=== PATIENT | female | born 1985 | race Caucasian/White ===

== ENCOUNTER 2018-09-22 07:36 | Inpatient (IN) | payer OTHER ==
[2018-09-22] MEDS ORDERED: OXYTOCIN 30 UNITS/LR 500 ML IV ×2 (08:30→11:30)
[2018-09-22] MEDS ORDERED: METHYLERGONOVINE 0.2 MG INJ IM ×2 (08:30→11:30)
[2018-09-22] MEDS ORDERED: MISOPROSTOL 200 MCG TAB PR ×2 (08:30→11:30)
[2018-09-22] MEDS ORDERED: CARBOPROST 250 MCG INJ IM ×2 (08:30→11:30)
[2018-09-22] MEDS: LACTATED RINGER'S 1,000 ML IV (08:50)
[2018-09-22] MEDS: AMPICILLIN 2 GM/NS (PMX) 100 ML IV (08:50)
[2018-09-22 09:06] LABS: ADD MAN DIFF? NO
[2018-09-22 09:08] LABS: ABNORMAL IP MESSAGE 1; BASOPHILS % 0.3 % (0.0-2.0); EOSINOPHILS # 0.1 10^3/ul (0.0-0.5); EOSINOPHILS % 1.1 % (0.0-7.0); HEMATOCRIT 37.2 % (37.0-47.0); HEMOGLOBIN 12.5 g/dl (12.0-16.0); LYMPHOCYTES # 1.1 10^3/ul (0.8-2.9); LYMPHOCYTES % 13.4 % (15.0-51.0); MEAN CORPUSCULAR HGB CONC 33.6 g/dl (32.0-37.0); MEAN CORPUSCULAR VOLUME 89.4 fl (82.0-101.0); MEAN PLATELET VOLUME 13.7 fl (7.4-10.4); MONOCYTE # 0.7 10^3/ul (0.3-0.9); MONOCYTES % 8.7 % (0.0-11.0); NEUTROPHILS % 75.9 % (39.0-77.0); PLATELET COUNT 112 10^3/UL (140-415); RED BLOOD COUNT 4.16 10^6/ul (4.20-5.40); RED CELL DISTRIBUTION WIDTH 13.2 % (11.5-14.5)
[2018-09-22 09:08] LABS: WHITE BLOOD COUNT 7.9 10^3/ul (4.8-10.8)
[2018-09-22 09:10] LABS: POSITIVE DIFF @See below
[2018-09-22] MEDS: BUTORPHANOL 2 MG INJ IV (09:20)
[2018-09-22 09:27] LABS: ADD UMIC YES; UR ASCORBIC ACID NEGATIVE (NEGATIVE); UR BACTERIA FEW /HPF (NONE SEEN); UR BILIRUBIN (Dip) NEGATIVE (NEGATIVE); UR BLOOD (Dip) 3+ mg/dL (NEGATIVE); UR CLARITY CLOUDY (CLEAR); UR COLOR AMBER (YELLOW); UR GLUCOSE (Dip) NEGATIVE (NEGATIVE); UR KETONES (Dip) NEGATIVE (NEGATIVE); UR LEUKOCYTE ESTERASE (Dip) 2+ Leu/ul (NEGATIVE); UR NITRITE (Dip) NEGATIVE (NEGATIVE); UR NONSQUAMOUS EPITHELIAL CELL 3 /HPF (NONE SEEN); UR RBC > 182 /HPF (0-5); UR SPECIFIC GRAVITY (Dip) 1.017 (1.003-1.030); UR SQUAMOUS EPITHELIAL CELL MANY /HPF (FEW); UR TOTAL PROTEIN (Dip) 2+ mg/dl (NEGATIVE); UR UROBILINOGEN (Dip) NEGATIVE (NEGATIVE); UR WBC 103 /HPF (0-5)
[2018-09-22 09:29] LABS: ALBUMIN/GLOBULIN RATIO 1.17; ANION GAP 9 (5-13); Estimated GFR > 60 mL/min (>60); INR 0.91; PROTIME 12.4 Sec (11.9-14.9)
[2018-09-22 09:38] LABS: ALANINE AMINOTRANSFERASE 17 IU/L (13-69); ALBUMIN 3.4 g/dl (3.3-4.9); ALKALINE PHOSPHATASE 113 IU/L (42-121); ASPARTATE AMINO TRANSFERASE 22 IU/L (15-46); BILIRUBIN,INDIRECT 0.1 mg/dl (0-1.1); BILIRUBIN,TOTAL 0.1 mg/dl (0.2-1.3); BLOOD UREA NITROGEN 12 mg/dl (7-20); CALCIUM 8.8 mg/dl (8.4-10.2); CARBON DIOXIDE 22 mmol/L (21-31); CHLORIDE 107 mmol/L (97-110); GLUCOSE 99 mg/dl (70-220); POTASSIUM 4.3 mmol/L (3.5-5.1); SODIUM 138 mmol/L (135-144); TOTAL PROTEIN 6.3 g/dl (6.1-8.1)
[2018-09-22 09:51] LABS: AMPHETAMINE/METHAMPHETAMINE Negative (NEGATIVE)
[2018-09-22 09:52] LABS: BARBITURATES Negative (NEGATIVE); BENZODIAZEPINES Negative (NEGATIVE); CANNABINOIDS Negative (NEGATIVE); COCAINE Negative (NEGATIVE); OPIATES Negative (NEGATIVE)
[2018-09-22] MEDS ORDERED: MINERAL OIL LIGHT 10 ML VIAL (10:20)
[2018-09-22] MEDS: OXYTOCIN 30 UNITS/LR 500 ML IV ×3 (10:48→16:56)
[2018-09-22] MEDS: LIDOCAINE 1% (MPF) 30 ML INJ INJ (10:51)
[2018-09-22 10:53] LABS: CBV Base Excess -5.7 mmol/L; CBV COHb 0.8 %; CBV Oxygen Sat 38.7 mmHG; CBV Total Hemglobin 15.8 g/dl; Cord Blood Venous AADO2 63.6 mmHg; Cord Blood Venous pO2 20.5 mmHG (15.0-45.0); Fraction OxyHgb Cord Venous 37.8 %; MODE ROOM AIR; MetHgb Cord Venous 1.4 %; Sample Type CBV; Site CORD
[2018-09-22 10:57] LABS: AADO2 Cord Arterial 56.3 mmHg; Arterial Cord Blood pCO2 65.5 mmHG (25-50); CBA COHb 0.1 %; CBA Oxygen Sat 25.1 mmHG; CBA Total Hemglobin 15.9 g/dl; Fraction OxyHgb Cord Arterial 24.6 %; MODE ROOM AIR; MetHgb Cord Arterial 1.8 %; Sample Type CBA; Site CORD
[2018-09-22] MEDS ORDERED: LACTATED RINGER'S 1,000 ML IV* (11:15)
[2018-09-22] MEDS ORDERED: MAGNESIUM HYDROXIDE 30ML CUP PO (11:30)
[2018-09-22] MEDS ORDERED: METHYLERGONOVINE 0.2 MG TAB PO (11:30)
[2018-09-22] MEDS ORDERED: HYDROCODONE/APAP (5/325) TAB PO (11:30)
[2018-09-22] MEDS ORDERED: ZOLPIDEM 5 MG TAB PO (11:30)
[2018-09-22] MEDS ORDERED: NA PHOSPHATE/BIPHOS 133 ML ENEMA PR (11:30)
[2018-09-22] MEDS ORDERED: ONDANSETRON 4 MG INJ IV (11:30)
[2018-09-22] MEDS ORDERED: DIPHENHYDRAMINE 25 MG CAP PO (11:30)
[2018-09-22] MEDS: AMPICILLIN 1 GM/NS (PMX) 50 ML IV (12:00)
[2018-09-22] MEDS: IBUPROFEN 600 MG TAB PO ×4 (12:02→23:42)
[2018-09-22 15:10] LABS: RAPID PLASMA REAGIN NONREACTIVE (NR)
[2018-09-22] MEDS: WITCH HAZEL/GLYCERIN PAD PR (16:52)
[2018-09-22] MEDS: BENZOCAINE 20% 56 ML SPRAY TOP (16:52)
[2018-09-22] MEDS: HYDROCODONE/APAP (5/325) TAB PO (17:02)
[2018-09-22] MEDS: SENNA/DOCUSATE NA (8.6MG/50MG) TAB PO (20:34)
[2018-09-23] MEDS: IBUPROFEN 600 MG TAB PO ×3 (05:33→17:31)
[2018-09-23 07:23] LABS: ADD MAN DIFF? NO
[2018-09-23 07:28] LABS: ABNORMAL IP MESSAGE 1; BASOPHILS % 0.2 % (0.0-2.0); EOSINOPHILS # 0.1 10^3/ul (0.0-0.5); EOSINOPHILS % 1.3 % (0.0-7.0); HEMATOCRIT 31.7 % (37.0-47.0); HEMOGLOBIN 10.7 g/dl (12.0-16.0); LYMPHOCYTES # 1.5 10^3/ul (0.8-2.9); MEAN CORPUSCULAR HEMOGLOBIN 30.7 pg (29.0-33.0); MEAN CORPUSCULAR HGB CONC 33.8 g/dl (32.0-37.0); MEAN CORPUSCULAR VOLUME 91.1 fl (82.0-101.0); MEAN PLATELET VOLUME 14.1 fl (7.4-10.4); MONOCYTE # 0.9 10^3/ul (0.3-0.9); MONOCYTES % 10.6 % (0.0-11.0); NEUTROPHIL # 5.6 10^3/ul (1.6-7.5); PLATELET COUNT 103 10^3/UL (140-415); RED BLOOD COUNT 3.48 10^6/ul (4.20-5.40); RED CELL DISTRIBUTION WIDTH 13.5 % (11.5-14.5)
[2018-09-23 07:28] LABS: WHITE BLOOD COUNT 8.2 10^3/ul (4.8-10.8)
[2018-09-23 07:31] LABS: POSITIVE DIFF @See below
[2018-09-23] MEDS: SENNA/DOCUSATE NA (8.6MG/50MG) TAB PO ×2 (09:00→20:56)
[2018-09-24] MEDS: IBUPROFEN 600 MG TAB PO ×4 (00:30→17:32)
[2018-09-24] MEDS: SENNA/DOCUSATE NA (8.6MG/50MG) TAB PO (08:20)
[2018-09-24] MEDS: LANOLIN HPA 1 PKT TOP (08:20)
[2018-09-24] MEDS: DIPHTH/TET/ACEL PERTUSS (ADULT) 0.5 ML VIAL IM* (09:00)
[2018-09-24] MEDS: MEASLES,MUMPS,RUBELLA VACCINE INJ SC* (09:00)
[2018-09-24] MEDS: VARICELLA VACCINE LIVE/PF 1,350 UNIT/0.5 ML ML SC* (09:00)
== END 2018-09-24 18:55 | disposition home or self-care (01) | DRG 807 ==
LOC: OBT 07:36 → L-D 07:37 → OBT 07:50 → L-D 07:50 → PP1 12:12
PROC: 10E0XZZ Delivery of Products of Conception, External Approach (ICD-10-PCS; principal; 2018-09-22)
PROC: 0W8NXZZ Division of Female Perineum, External Approach (ICD-10-PCS; 2018-09-22)
DX: O99.824 Streptococcus B carrier state complicating childbirth (principal); Z37.0 Single live birth; Z3A.39 39 weeks gestation of pregnancy
CPT/HCPCS: 36415; 36600; 76815; 80053; 80307; 81001; 82803; 84560; 85025; 85610; 85730; 86592; 86850; 86900; 86901; 93970; 99464